=== PATIENT | female | born 1955 | race Caucasian/White ===

== ENCOUNTER 2017-08-16 17:27 | Emergency (ER) | payer MEDICAID ==
[~2017-08-16] VITALS: Ht 154.9 cm; Wt 85.3 kg
[~2017-08-16 17:27] MED LIST: ATOR20TA PO; LEVO50TA5 PO; PANT40TA5 PO
[2017-08-16] MEDS ORDERED: MORPHINE SULFATE 4 MG/ML, 1ML IVPush ONE ×2 (18:30→20:00)
[2017-08-16] MEDS ORDERED: ONDANSETRON 2MG/ML, 2ML IVPush ONE (18:30)
[2017-08-16] MEDS ORDERED: ETOMIDATE 20 MG/10 ML IVPush ONE (18:30)
[2017-08-16] MEDS ORDERED: ONDANSETRON 2MG/ML, 2ML ONE ×2 (18:46→20:17)
[2017-08-16] MEDS ORDERED: MORPHINE SULFATE 4 MG/ML, 1ML ONE ×3 (18:46→20:17)
[2017-08-16] MEDS ORDERED: ETOMIDATE 20 MG/10 ML ONE (18:46)
[2017-08-16 20:30] VITALS: BP 148/79
== END 2017-08-16 21:57 | disposition home or self-care (01) ==
LOC: ED 21:28
DX: S43.014A Anterior dislocation of right humerus, initial encounter (principal); I10 Essential (primary) hypertension; Z88.0 Allergy status to penicillin; W19.XXXA Unspecified fall, initial encounter; Y93.89 Activity, other specified; Y99.8 Other external cause status; Y92.89 Other specified places as the place of occurrence of the external cause
CPT/HCPCS: 23650; 72050; 73020; 73030; 73200; 96374; 96375; 99152; 99285; J2405

== ENCOUNTER 2018-06-30 09:34 | Emergency (ER) | payer MEDICAID ==
[~2018-06-30] VITALS: Ht 152.4 cm; Wt 85.7 kg
[2018-06-30 09:36] VITALS: BP 161/93
--- NOTE | 2018-06-30 10:16 | NUR ---
PT TO RADIOLOGY
== END 2018-06-30 11:28 | disposition home or self-care (01) ==
LOC: ED 11:08
DX: J15.9 Unspecified bacterial pneumonia (principal); E78.00 Pure hypercholesterolemia, unspecified; I10 Essential (primary) hypertension; J45.909 Unspecified asthma, uncomplicated
CPT/HCPCS: 71046; 93005; 99283

== ENCOUNTER 2019-10-15 12:20 | Emergency (ER) | payer MEDICARE, MEDICAID ==
[~2019-10-15] VITALS: Ht 154.9 cm; Wt 87.8 kg
[2019-10-15 12:26] VITALS: BP 155/81
--- NOTE | 2019-10-15 12:44 | NUR ---
PT GETS INJECTIONS FROM HER PCP FOR ARTHRITIS. SAYS "I GOT MY LAST INJECTION A WEEK AGO AND IT HAS FELT LIKE THERE IS ANTS CRAWLING ON MY LEGS EVER SINCE. AND MY PCP WANTED ME TO COME TO ED TO MAKE SURE I WASNT HAVING ANY KIND OF REACTION"
--- NOTE | 2019-10-15 12:47 | NUR ---
REPORT RECEIVED FROM BOBBI PIERCE.
--- NOTE | 2019-10-15 12:49 | NUR ---
REPORT TO KARI ISIDRO TO ASSUME PRIMARY CARE OF PT.
[2019-10-15 13:04] LABS: BASOPHILS # (AUTO) 0.06 x10^3/uL (0-0.1); BASOPHILS % (AUTO) 1 % (0-1); EOSINOPHILS # (AUTO) 0.21 x10^3/uL (0-0.4); EOSINOPHILS % (AUTO) 2 % (1-7); LYMPHOCYTES # (AUTO) 4.87 x10^3/uL (1-3.4); LYMPHOCYTES % (AUTO) 43 % (22-44); MD NO; MEAN CORPUSCULAR HEMOGLOBIN 28.6 pg (27.0-34.8); MEAN CORPUSCULAR HGB CONC 33.7 g/dL (32.4-35.8); MEAN CORPUSCULAR VOLUME 85.1 fL (80-100); MEAN PLATELET VOLUME 6.8 fL (7.4-10.4); MONOCYTES % (AUTO) 6 % (2-9); NEUTROPHILS % (AUTO) 49 % (42-75); PLATELET COUNT 322 x10^3/uL (130-400); RED BLOOD COUNT 5.05 x10^6/uL (3.82-5.3); RED CELL DISTRIBUTION WIDTH 13.3 % (9.6-15.2)
[2019-10-15 13:15] LABS: ALBUMIN 3.2 g/dL (3.4-5.0); ANION GAP 4 mmol/L (5-15); CHLORIDE 105 mmol/L (98-107); CREATININE 0.82 mg/dL (0.55-1.02)
--- NOTE | 2019-10-15 13:50 | NUR ---
PT DRESSED SELF IN STREET CLOTHES, AMBULATORY TO BATHROOM WITH STEADY GAIT.
--- NOTE | 2019-10-15 14:11 | NUR ---
PT GIVEN D/C INSTRUCTIONS IN BOTH [place] AND [facility], DAUGHTER AT BEDSIDE TO TRANSLATE, PT DENIED ANY QUESTIONS.
== END 2019-10-15 14:13 | disposition home or self-care (01) ==
LOC: ED 12:49
DX: R20.2 Paresthesia of skin (principal); E11.65 Type 2 diabetes mellitus with hyperglycemia; I10 Essential (primary) hypertension; E78.00 Pure hypercholesterolemia, unspecified; J45.909 Unspecified asthma, uncomplicated; E03.9 Hypothyroidism, unspecified; E78.5 Hyperlipidemia, unspecified
CPT/HCPCS: 36415; 80048; 82040; 85025; 93970; 99284

== ENCOUNTER 2020-02-03 13:50 | Emergency (ER) | payer MEDICARE, MEDICAID ==
[~2020-02-03] VITALS: Ht 154.9 cm; Wt 90.4 kg
[2020-02-03] MEDS ORDERED: SODIUM CHLORIDE 0.9% 1,000ML IVBOLUS ONE (14:00)
[2020-02-03] MEDS ORDERED: DIPHENHYDRAMINE 50 MG/ML, 1ML IVPush ONE (14:00)
[2020-02-03] MEDS ORDERED: PROCHLORPERAZINE 5 MG/ML, 2ML IVPush ONE (14:00)
--- NOTE | 2020-02-03 14:39 | NUR ---
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
[2020-02-03] MEDS ORDERED: PROCHLORPERAZINE 5 MG/ML, 2ML ONE (14:42)
[2020-02-03] MEDS ORDERED: DIPHENHYDRAMINE 50 MG/ML, 1ML ONE (14:43)
[2020-02-03] MEDS ORDERED: KETOROLAC 30 MG/1 ML IVPush ONE (15:00)
[2020-02-03] MEDS ORDERED: MORPHINE SULFATE 4 MG/ML, 1ML IVPush PRN (15:00)
--- NOTE | 2020-02-03 15:05 | NUR ---
FIRST CONTACT WITH PT. PER DAUGHTER "SHE HAS NECK PAIN AND MIGRAINES FOR ABOUT TWO MONTHS BUT ITS GETTING WORSE, HER NEURO DOCTOR DID AN MRI AND THEY FOUND A WHITE SPOT SO MAYBE THATS IT" PT'S AOX4. RESPS EVEN AND UNLABORED. BP/SPO2 MONITORS IN PLACE. CALL LIGHT WITHIN REACH.
--- NOTE | 2020-02-03 15:07 | NUR ---
EDMD AT BEDSIDE TO EVALUATE AT THIS TIME.
[2020-02-03] MEDS ORDERED: KETOROLAC 30 MG/1 ML ONE (15:10)
[2020-02-03] MEDS ORDERED: MORPHINE SULFATE 4 MG/ML, 1ML ONE (15:10)
--- NOTE | 2020-02-03 15:14 | NUR ---
THIS RN ATTEMPTED TO START PIV X 2 AND NO SUCCESS. NAVI RN AT BEDSIDE TO START PIV AT THIS TIME.
[2020-02-03 15:25] LABS: CALCIUM 8.6 mg/dL (8.5-10.1); CHLORIDE 105 mmol/L (98-107); CREATININE 0.69 mg/dL (0.55-1.02)
--- NOTE | 2020-02-03 15:27 | NUR ---
PT AMB TO BR WITH STEADY GAIT AT THIS TIME.
[2020-02-03 15:35] LABS: ANION GAP 6 mmol/L (5-15)
--- NOTE | 2020-02-03 15:43 | NUR ---
PT MEDICATED PER EMAR. PT TOLERATED WELL.
[2020-02-03 16:39] VITALS: BP 125/59
--- NOTE | 2020-02-03 16:40 | NUR ---
Patient given discharge instructions and they have confirmed that they understand the instructions. Patient ambulatory with steady gait.
== END 2020-02-03 16:41 | disposition home or self-care (01) ==
LOC: ED 16:30
DX: G44.219 Episodic tension-type headache, not intractable (principal); M54.12 Radiculopathy, cervical region; E11.9 Type 2 diabetes mellitus without complications
CPT/HCPCS: 36415; 80048; 96374; 96375; 99284; J0780; J1200; J1885; J2270